=== PATIENT | male | born 1960 | race Caucasian/White ===

== ENCOUNTER 2019-02-08 12:35 | Emergency (ER) | payer MEDICAID ==
--- NOTE | 2019-02-08 13:25 | ED Physician Chart ---
ED Chief Complaint/HPI - Patient Information Date Seen:: 02/08/19 Time Seen:: 12:50 Chief Complaint:: facial laceration History of Present Illness:: At 0900 patient was leaving the bathroom and fell sustaining a laceration around the left eye. No loss of consciousness. No neck pain. 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 Allergies:: Allergies Allergy/AdvReac Type Severity Reaction Status Date / Time hydrocodone Allergy Verified 02/08/19 13:00 iodine Allergy Verified 02/08/19 13:00 Vitals:: Vital Signs - 8 hr 02/08/19 13:01 Temp 99.7 F HR 102 RR 16 BP 160/64 O2 Sat % 97 Historian:: Patient, Family Member ED Review of Systems - Review of Systems General/Constitutional: No fever Skin: Skin lesions Head: No headache Eyes: No loss of vision ENT: No earache Neck: No neck pain Cardio Vascular: No chest pain Pulmonary: No SOB GI: No nausea, No vomiting, No diarrhea G/U: No dysuria Musculoskeletal: No bone or joint pain Endocrine: Polyuria Psychiatric: No prior psych history, No depression Hematopoietic: No bruising Allergic/Immuno: No urticaria Neurological: No syncope, No focal symptoms ED Past Medical History - Past Medical History Past Medical History: Other (cancer of the mandible as stated above) Family History: None Social History: Care Facility, Other (family cigarettes and drink alcohol) Surgical History: other (Port-A-Cath) Psychiatricy History: None ED Physical Exam - Physical Examination General/Constitutional: Awake Other Gen/Cons comments:: Mildly chronically ill-appearing Head: Atraumatic Eyes: Lids, conjuctiva normal Other Skin comments:: 2 cm laceration extending from lateral left upper eyelid to lateral to left eye ; depth of the laceration about 2 mm; swelling inferior to left eye ENMT: External ears, nose nl Other ENMT comments:: Edentulous; drooping of right side amount Neck: No nuchal rigidity Respiratory: Nl effort/Exclusion, Clear to Auscultation Cardio Vascular: RRR, No murmur, gallop, rubs GI: No tenderness/rebounding/guarding Other Extremities comments:: 2 cm prepatellar abrasion right knee Neuro/Psych: Judgement/insight normal ED Labs/Radiology/EKG Results - Radiology Results Results: fractures of wall of left orbit and fracture of floor of left orbit ED Assessment - Assessment General Assessment: At 1500 patient had decreased upward gaze with the left eye. Patient denied diplopia. Spoke to Dr. Duggan who suggested having Dr. Torey Cordero make the patient a direct admit to [facility] or [facility] where the appropriate specialist (ENT, plastics or maxillofacial) would be available. I then spoke to Dr. Cordero who said the appropriate specialist is not available at either of the 2 above-mentioned hospitals. I then spoke to Uche at the [facility] who requested a face sheet faxed to him at . Patient accepted by Dr. Abdi to [facility] emergency department. Location:: Laceration: Irrigated with normal saline; 5-0 chromic interrupted sutures used to close the laceration ED Septic Shock - . Is Septic Shock (SBP<90, OR Lactate>4 mmol\L) present?: No - <6hrs of presentation: Vital Signs: Vital Signs - 8 hr 02/08/19 13:01 Temp 99.7 F HR 102 RR 16 BP 160/64 O2 Sat % 97 ED Reassessment (Disposition) - Reassessment Reassessment Condition:: Unchanged - Diagnosis Diagnosis:: Fractures wall left orbit; inferior rectus muscle entrapment left maxillary sinus; 2 cm laceration adjacent to left eye - Patient Disposition Discharge/Transfer:: Acute Care (other hosp) Condition at Disposition:: Stable, Improved
--- NOTE | 2019-02-08 14:45 | Diagnostic Imaging Report ---
CT of the orbits without IV contrast History: trauma to the left eye Comparison: None Technique: Axial images of the orbits were obtained without IV contrast. Reconstructions were made. Total DLP 297 CTD I 22 Findings: There are nondisplaced fractures of the left orbital floor with a few pockets of gas seen along left extraconal region. No muscle or fat herniation. The fracture line extends to the anterior lateral wall of the left orbit with slight depressed fracture of the lateral wall of the left orbit best seen on image 15 through 18, series 5. There are also irregularities and nondisplaced fractures involving the posterior lateral wall of the left maxillary sinus. There is partial opacification left maxillary sinus with probable hemorrhagic components an air-fluid level also noted. There is also additional mucosal thickening of the paranasal sinuses. The intraconal compartments are intact. The zygomatic arches are intact. The TMJ joints are intact. There is partially visualized abnormal changes possible previous fractures or bony destruction of the zygoma most pronounced to the right side. There is mild soft tissue swelling of the left facial and left preseptal regions. Rightward deviated nasal septum is noted. Bilateral mastoid air cell disease is noted. Age-indeterminate nondisplaced nasal fracture suspected. IMPRESSION: Fractures involving the left orbital floor and inferolateral wall of the left orbit. Slight depressed fracture of the lateral wall of the left orbit is noted. No evidence of fat herniation. Few pockets of gas are seen along left extraconal region and left maxillary region. Additional nondisplaced fractures of the posterior lateral clark of the left maxillary sinus with air-fluid level and probable hemorrhagic components in the left maxillary sinus. Additional abnormal partially visualized changes seen along the zygomatic bone with possible previous fractures or mass lesions seen along the zygoma.. Please correlate with clinical history and old exams. Additional CT of the facial is also suggested for further assessment. Age indeterminate nondisplaced nasal fractures. Mild sinus disease Bilateral mastoid air cell disease. Left facial and left preseptal soft tissue swelling.
[2019-02-08] MEDS ORDERED: ceFAZolin 1 GM in Sodium Chloride 0.9% 50 ML IV ONE (15:16)
[2019-02-08] MEDS ORDERED: Morphine Sulfate 4 mg/mL 1mL Syr IVP STA (15:17)
[2019-02-08] MEDS ORDERED: Morphine Sulfate 4 mg/mL 1mL Syr ONE (15:31)
[2019-02-08 15:50] LABS: HEMATOCRIT 26.8 % (41.0-60); HEMOGLOBIN 8.8 gm/dL (12-16); MEAN CELL VOLUME 82.8 fl (80-99); MEAN CORPUSCULAR HEMOGLOBIN 27.1 pg (26.0-30.0); MEAN CORPUSCULAR HGB CONC 32.7 pg (28.0-36.0); PLATELET COUNT 489 Th/cmm (150-400); RED BLOOD COUNT 3.24 Mil/cmm (4.30-5.70); WHITE BLOOD COUNT 9.7 Th/cmm (4.8-10.8)
[2019-02-08 15:56] LABS: INR 1.06 (0.5-1.4)
[2019-02-08 15:59] LABS: BUN - UREA NITROGEN 10 mg/dL (7-25); CALCIUM SERUM 9.1 mg/dL (8.6-10.3); CARBON DIOXIDE 27.8 mEq/L (21.0-31.0); CHLORIDE 101 mEq/L (98-107); CREATININE - SERUM 0.8 mg/dL (0.7-1.3); GFR AFRICAN-AMERICAN > 60.0 ml/min (>90); GFR NON AFRICAN-AMERICAN > 60.0 ml/min; GLUCOSE 105 mg/dL (70-105); POTASSIUM SERUM 3.8 mEq/L (3.5-5.1); SODIUM SERUM 138 mEq/L (136-145)
[2019-02-08 16:32] LABS: BAND NEUTROPHILE 0 % (0-10); BASOPHIL 0 % (0-3); EOSINOPHIL 4 % (0-5); LYMPHOCYTE 6 % (20-50); MONOCYTE 10 % (2-10); NEUTROPHILS 80 % (40-80); PLATELET ESTIMATE INCREASED PLATELETS (NORMAL)
== END 2019-02-08 18:45 | disposition short-term general hospital (02) ==
LOC: ER 12:35
DX: S02.82XA Fracture of other specified skull and facial bones, left side, initial encounter for closed fracture (principal); S01.112A Laceration without foreign body of left eyelid and periocular area, initial encounter; Z88.5 Allergy status to narcotic agent; Z91.041 Radiographic dye allergy status; W18.39XA Other fall on same level, initial encounter; Y93.89 Activity, other specified; Y92.89 Other specified places as the place of occurrence of the external cause; Y99.8 Other external cause status
CPT/HCPCS: 99285; 96365; 96375; 12011; 70480; 36415; 85007; 85025; 85610; 85730; 80048; J0690; A4217; Z7610